=== PATIENT | female | born 1965 | race Caucasian/White ===

== ENCOUNTER 2023-09-06 09:57 | Outpatient (CLI) | payer BC, SELFPAY ==
--- NOTE | 2023-09-06 10:00 | MM_ITS ---
WS: [id number] BILATERAL SCREENING DIGITAL TOMOSYNTHESIS MAMMOGRAM WITH CAD HISTORY: SCREENING COMPARISON: None available. Bilateral CC and MLO views with tomosynthesis and synthetic mammography submitted. Computer aided det ection analyzed. Breast composition: The breasts are almost entirely fatty. No suspicious masses, microcalcifications or architectural distortion. Benign lucent calcifications scattered throughout the RIGHT breast. No s uspicious groups of calcifications noted. MM/[place] [address] IMPRESSION: BI-RADS: 2-Benign FOLLOW UP: 1 Year Follow-up
== END 2023-09-06 09:58 | disposition home or self-care (01) ==
LOC: MOBLMAM 10:09
PROVIDERS: PCP Nurse Practitioner Family; Visit Provider Nurse Practitioner Family
DX: Z12.31 Encounter for screening mammogram for malignant neoplasm of breast (principal); R92.1 Mammographic calcification found on diagnostic imaging of breast
CPT/HCPCS: 77063; 77067